=== PATIENT | female | born 1995 | race Caucasian/White ===

== ENCOUNTER 2021-09-18 11:30 | Emergency (ER) | payer MEDICAID ==
[~2021-09-18] VITALS: Ht 160 cm; Wt 80.2 kg
[2021-09-18 11:55] VITALS: BP 126/85
[2021-09-18 12:00] VITALS: BP 118/85
[2021-09-18] MEDS ORDERED: PENICILLN VK500 MG PO ×2 (12:16→12:33)
[2021-09-18] MEDS ORDERED: TRAMADOL HCL50 MG PO ×2 (12:16→12:33)
[2021-09-18 13:15] VITALS: BP 126/85
== END 2021-09-18 13:00 | disposition home or self-care (01) ==
LOC: ED 11:30
DX: K02.9 Dental caries, unspecified (principal); F17.200 Nicotine dependence, unspecified, uncomplicated

== ENCOUNTER 2022-01-16 11:50 | Emergency (ER) | payer MEDICAID ==
[2022-01-16] VITALS (8 sets, daily range): BP systolic 96–126; BP diastolic 56–74
[~2022-01-16] VITALS: Ht 160 cm; Wt 79.5 kg
[~2022-01-16 11:50] MED LIST: PENICILLN VK500 MG PO; TRAMADOL HCL50 MG PO
[2022-01-16] MEDS ORDERED: CEPHALEXIN500 MG PO (13:14)
[2022-01-16 13:17] LABS: HEMOGLOBIN 10.6 g/dl (12.0-16.0); IMMATURE GRANULOCYTES 1.9 % (0.0-5.0); MEAN CELL VOLUME 79.3 fL CALC (80.0-100.0); MEAN CORPUSCULAR HGB 24.7 pG CALC (26.0-32.0); MEAN CORPUSCULAR HGB CONC 31.2 g/dL CAL (32.0-36.0); NEUT# 14.48 thou/uL (2.00-7.15); RED BLOOD COUNT 4.29 mill/uL (4.20-5.60)
[2022-01-16 13:30] LABS: ALBUMIN 3.9 g/dL (3.2-5.0); ALKALINE PHOSPHATASE 53 u/l (38-126); ANION GAP 13 (6-22 (CALC)); BILIRUBIN, TOTAL 0.6 mg/dL (0.0-1.4); BUN 14 mg/dL (7-17); BUN/CREATININE RATIO 25 (12-20 (CALC)); CARBON DIOXIDE 25 mmol/l (22-30); CHLORIDE 100 mmol/l (95-108); CREATININE 0.6 mg/dL (0.5-1.0); GFR FOR AFR.AMER. > 60 ML/MIN (>=60 (CALC)); GFR OTHER RACES > 60 ML/MIN (>=60 (CALC)); LIPASE 12 u/l (23-300); SGOT/AST 33 u/l (14-36); SODIUM 135 mmol/l (137-146); TOTAL PROTEIN 6.7 g/dL (6.3-8.2)
[2022-01-16 14:14] LABS: URINE BLOOD DIPSTICK NEGATIVE (NEGATIVE); URINE COLOR YELLOW; URINE GLUCOSE - DIPSTICK NEGATIVE (NEGATIVE); URINE KETONE TRACE mg/dL (NEGATIVE); URINE LEUK ESTERASE NEGATIVE (NEGATIVE); URINE PROTEIN - DIPSTICK 30 mg/dL (NEG-TRACE)
[2022-01-16 14:29] LABS: URINE BILIRUBIN - DIPSTICK SMALL (NEGATIVE); URINE MUCUS FEW hpf (NONE-FEW); URINE NITRITE - DIPSTICK NEGATIVE (Negative)
[2022-01-16] MEDS ORDERED: ONDANSETRON4 MG PO (16:14)
[2022-01-16] MEDS ORDERED: POTASSIUM CHLO10 MEQ PO (16:14)
== END 2022-01-16 16:40 | disposition home or self-care (01) ==
LOC: ED 11:50
PROVIDERS: Nurse Practitioner
DX: K52.9 Noninfective gastroenteritis and colitis, unspecified (principal); F17.210 Nicotine dependence, cigarettes, uncomplicated; Z20.822 Contact with and (suspected) exposure to COVID-19

== ENCOUNTER 2022-01-21 23:31 | Emergency (ER) | payer MEDICAID ==
[~2022-01-21] VITALS: Ht 160 cm; Wt 80.0 kg
[~2022-01-21 23:31] MED LIST changes: +CEPHALEXIN500 MG PO; +ONDANSETRON4 MG PO; +POTASSIUM CHLO10 MEQ PO
[2022-01-22 00:17] LABS: ALBUMIN 3.3 g/dL (3.2-5.0); BILIRUBIN, TOTAL 0.5 mg/dL (0.0-1.4); BUN 6 mg/dL (7-17); BUN/CREATININE RATIO 14 (12-20 (CALC)); CHLORIDE 93 mmol/l (95-108); CREATININE 0.5 mg/dL (0.5-1.0); GFR FOR AFR.AMER. > 60 ML/MIN (>=60 (CALC)); GFR OTHER RACES > 60 ML/MIN (>=60 (CALC)); POTASSIUM 2.6 mmol/l (3.5-5.1); SODIUM 135 mmol/l (137-146); TOTAL PROTEIN 6.9 g/dL (6.3-8.2)
[2022-01-22 00:20] LABS: HEMATOCRIT 32.7 % (37.0-47.0); IMMATURE GRANULOCYTES 2.3 % (0.0-5.0); MEAN CELL VOLUME 78.2 fL CALC (80.0-100.0); MEAN CORPUSCULAR HGB 23.9 pG CALC (26.0-32.0); MEAN CORPUSCULAR HGB CONC 30.6 g/dL CAL (32.0-36.0); NEUT# 4.34 thou/uL (2.00-7.15); RED BLOOD COUNT 4.18 mill/uL (4.20-5.60); RED CELL DISTRI WIDTH 16.2 % (11.5-15.5)
[2022-01-22 00:21] LABS: ALKALINE PHOSPHATASE 114 u/l (38-126); ANION GAP 9 (6-22 (CALC)); CARBON DIOXIDE 36 mmol/l (22-30); SGOT/AST 69 u/l (14-36)
[2022-01-22] MEDS ORDERED: VIBRAMYCIN100 M2 PO (01:05)
[2022-01-22] MEDS ORDERED: PROMETHAZINE HY25 M1 PO (01:05)
[2022-01-22] MEDS ORDERED: POTASSIUM CHLO20 ME1 PO (01:05)
[2022-01-22 01:16] VITALS: BP 133/45
[2022-01-22 01:30] VITALS: BP 133/45
== END 2022-01-22 02:15 | disposition home or self-care (01) ==
LOC: ED 23:31
PROVIDERS: Family Medicine
DX: K52.9 Noninfective gastroenteritis and colitis, unspecified (principal); J20.9 Acute bronchitis, unspecified; E87.6 Hypokalemia; F17.210 Nicotine dependence, cigarettes, uncomplicated; Z20.822 Contact with and (suspected) exposure to COVID-19